=== PATIENT | male | born 1950 ===

== ENCOUNTER 2018-04-19 12:41 | Outpatient (CLI) | payer MEDICARE ==
[2018-04-19 13:08] LABS: BASOPHILS % 0.3 (0.0-1.5); EOSINOPHILS % 2.6 % (0.0-6.8); MEAN CORPUSCULAR HEMOGLOBIN 30.2 pg (28.0-34.0); MEAN CORPUSCULAR VOLUME 91.6 fl (80.0-100.0); MONOCYTES % 5.7 % (0.0-11.0); NEUTROPHILS # 6.5 # k/uL (1.4-7.7)
[2018-04-19 13:24] LABS: eGFR (African) 56; eGFR (Non-African) 46
--- NOTE | 2018-04-19 15:32 | Diagnostic Imaging Report ---
GAMA KENT [facility] [address] [facility] [address] [address] Report Submission Date: Apr 19, 2018 1:51:15 PM CDT Patient Study Name: KENNETH LEONARDO Date: Apr 19, 2018 1:14:01 PM CDT Modality Type: DX Gender: M Description: CHEST : 50 Institution: [facility] Physician: GAMA KENT Examination: PA and lateral chest. History: Evaluate lung juarez. COUGH X 2 WEEKS (Hx) Comparison exam: None provided. Findings: PA lateral chest demonstrate a normal cardiac and mediastinal silhouette. Mild emphysematous changes. No focal infiltrate. No blunting of the costophrenic margins. Flattening of the diaphragm and lateral view. Osseous structures are appropriate for age. Impression: Mild emphysematous changes. No acute pulmonary process. Electronically signed on Apr 19, 2018 1:51:15 PM CDT by: Brian JAMISON
== END 2018-04-19 12:42 ==
LOC: LAB 12:41
PROVIDERS: ATTEND Family Medicine
DX: I10 Essential (primary) hypertension (principal); I50.21 Acute systolic (congestive) heart failure; R06.09 Other forms of dyspnea
CPT/HCPCS: 36415; 71046; 80053; 83880; 85025